=== PATIENT | female | born 1935 | race Caucasian/White ===

== ENCOUNTER 2017-06-13 17:48 | Emergency (ER) | payer MEDICARE, MEDICAID ==
[2017-06-13 19:33] LABS: BASO % 0 % (0-3); EOS # 0.2 x10^3/uL (0.0-0.7); EOS % 1 % (0-3); HEMATOCRIT 36.2 % (36.0-47.0); HEMOGLOBIN 12.2 g/dL (12.0-15.5); LYMPH # 1.1 x10^3/uL (1.0-4.8); LYMPH % 7 % (24-48); MEAN CORPUSCULAR HEMOGLOBIN 31 pg (25-35); MEAN CORPUSCULAR HGB CONC 34 g/dL (31-37); MEAN CORPUSCULAR VOLUME 92 fL (79-100); MONO # 0.7 x10^3/uL (0.0-1.1); MONO % 4 % (0-9); NEUT # 14.2 x10^3uL (1.8-7.7); NEUT % 88 % (31-73); PLATELET COUNT 284 x10^3/uL (140-400); RED BLOOD COUNT 3.92 x10^6/uL (3.50-5.40); RED CELL DISTRIBUTION WIDTH 13.6 % (11.5-14.5); WHITE BLOOD COUNT 16.2 x10^3/uL (4.0-11.0)
[2017-06-13 19:36] LABS: CALCIUM 9.4 mg/dL (8.5-10.1); CREATININE 0.8 mg/dL (0.6-1.0); GFR 68.5; POTASSIUM 3.7 mmol/L (3.5-5.1)
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
[2017-06-13 21:03] VITALS: BP 156/51
[2017-06-13 21:27] LABS: BACTERIA,URINE MOD /HPF (0-FEW); BILIRUBIN,URINE NEG (NEG); CLARITY,URINE HAZY; COLOR,URINE YELLOW; GLUCOSE,URINE NEG (NEG); NITRITE,URINE NEG (NEG); SQUAMOUS EPITHELIAL CELL,UR MOD /LPF; UROBILINOGEN,URINE 0.2 mg/dL (0.2 mg/dL)
[2017-06-13 21:28] LABS: AMORPHOUS SEDIMENT,UR PRESENT /HPF; HYALINE CASTS, URINE MOD /HPF
[2017-06-13 21:39] LABS: % BANDS 2 % (0-9); % EOS 2 % (0-5); % LYMPHS 6 % (24-48); % MONOS 3 % (0-10); % SEGS 87 % (35-66)
[2017-06-13 21:44] LABS: PLT ESTIMATE ADEQUATE (ADEQUATE)
[2017-06-13 21:47] LABS: OVALOCYTES FEW
[2017-06-13] MEDS ORDERED: CIPR250T30 PO (22:13)
[2017-06-13] MEDS ORDERED: CIPROFLOXACIN HCL 500 MG TABLET PO ONE (22:15)
== END 2017-06-13 23:00 ==
LOC: ER 17:48
DX: E11.649 Type 2 diabetes mellitus with hypoglycemia without coma (principal); N39.0 Urinary tract infection, site not specified; K21.9 Gastro-esophageal reflux disease without esophagitis; E03.9 Hypothyroidism, unspecified; I10 Essential (primary) hypertension; F03.90 Unspecified dementia, unspecified severity, without behavioral disturbance, psychotic disturbance, mood disturbance, and anxiety; F41.9 Anxiety disorder, unspecified; F32.9 Major depressive disorder, single episode, unspecified; Z79.4 Long term (current) use of insulin; Z86.2 Personal history of diseases of the blood and blood-forming organs and certain disorders involving the immune mechanism
CPT/HCPCS: 36415; 80048; 81001; 82947; 85007; 85025; 87086; 87186; 99285

== ENCOUNTER 2017-11-07 23:08 | Inpatient (IN) | payer MEDICARE, MEDICAID ==
[~2017-11-07] VITALS: Ht 157.5 cm; Wt 51.9 kg
[~2017-11-07 23:08] MED LIST: CIPR250T30 PO
--- NOTE | 2017-11-07 23:37 | ED.ADGEN ---
Past History Past Medical History: Anemia, Anxiety, Dementia, Depression, Diabetes, GERD, GI Bleed, Hypertension, Hyperthyroid, Other Past Surgical History: Other Alcohol Use: None Drug Use: None Adult General Chief Complaint Chief Complaint " I am having a baby..." HPI HPI Patient is a 82 year old female who presents with hx of nausea and vomiting. Staffing felt vomit to be coffee ground per NH at [facility]. . Pt. reportedly under went a GI procedure on 11/04 for abd.pain, location not know at this time. Pt. does have a Hx. of Anemia, DJD, CADz with Stents, GERD , Depression, Dementia, Anxiety, HTN, Hyper Lipidemia, DM II, UTI - recurrent, and deconditioning. Pt . normally follows with Dr. Pruett. Pt. a very poor historian, feels she is and going to have baby. Pt. localizes her pain in lower abd.. Pt. reports did have a black and feliz stool tonight. Pt. normally and stand and turn, but weaker tonight. Review of Systems Review of Systems Pt. poor historian - dementia Constitutional: Hx of fever Eyes: Denies change in visual acuity, redness, or eye pain [] HENT: Denies nasal congestion or sore throat [] Respiratory: Denies cough or shortness of breath [] Cardiovascular: No additional information not addressed in HPI [] GI: Hx of abdominal pain, nausea, vomiting, coffee ground? : Denies dysuria or hematuria [] Musculoskeletal: Denies back pain or joint pain [] Integument: Denies rash or skin lesions [] Neurologic: Denies headache, focal weakness or sensory changes [] Endocrine: Denies polyuria or polydipsia [] All other systems were reviewed and found to be within normal limits, except as documented in this note. Family History Family History Not currently available Current Medications Current Medications Current Medications Medications (Trade) Dose Ordered Sig/[place] Start Time Stop Time Status Last Admin Dose Admin Famotidine (Pepcid Vial) 20 mg 1X ONCE 11/08/17 00:30 11/08/17 00:35 DC 11/08/17 00:30 20 MG Lactated Ringer's 1,000 ml @ 1,000 mls/hr Q1H 11/07/17 23:45 11/08/17 00:44 DC 11/07/17 23:45 1,000 MLS/HR Ondansetron HCl (Zofran Odt) 4 mg 1X ONCE 11/08/17 01:30 11/08/17 01:31 DC 11/08/17 00:30 4 MG Ondansetron HCl (Zofran) 4 mg 1X ONCE 11/08/17 00:30 11/08/17 00:36 DC Allergies Allergies nkda Physical Exam Physical Exam Constitutional: , no acute distress, chronically ill in appearance. [] HENT: Normocephalic, atraumatic, bilateral external ears normal, oropharynx very dry, no oral exudates, nose normal. [] Eyes: PERRLA, EOMI, conjunctiva pale, no discharge. [] Neck: Normal range of motion, no tenderness, supple, no stridor. [] Cardiovascular:Bradycardia Heart rate regular rhythm, PMI to lt. Lungs & Thorax: Bilateral breath sounds rhonchi >on rt upper on auscultation [] Abdomen: Bowel sounds normal, soft, no tenderness, no masses, no pulsatile masses. Rectal Trace + Hgb Skin: Warm, dry, no erythema, no rash. [] Poor turgor. Cap. refill at 3 seconds finger and toes. Back: lumbar tenderness, no CVA tenderness. [] Extremities: Rt. hip and leg tenderness, no cyanosis, no clubbing, Limit ROM Rt leg,, no edema. Arthritic changes. Posterior gluteal contusion Neurologic: Alert x1, ,moves all ext. on request, no gross sensory loss over baseline, Psychologic: Affect flat., depressed. Episodes of hallucination and agitation. Pt. feels she is having labor pains from a and is at [facility]. Pt. yelling for Oleksandr to open window and stop the car... yelling for her daughters Denita and Trudy to go get sandwiches for the Garage sale. Current Patient Data Vital Signs Vital Signs Date Time Temp Pulse Resp B/P (MAP) Pulse Ox O2 Delivery O2 Flow Rate FiO2 11/07/17 23:08 98.1 60 20 98 Room Air Lab Results Laboratory Tests Test 11/07/17 23:14 11/07/17 23:35 11/07/17 23:40 Stool Occult Blood Positive (NEG) White Blood Count 15.8 x10^3/uL (4.0-11.0) H Red Blood Count 3.30 x10^6/uL (3.50-5.40) L Hemoglobin 10.0 g/dL (12.0-15.5) L Hematocrit 30.2 % (36.0-47.0) L Mean Corpuscular Volume 92 fL (79-100) Mean Corpuscular Hemoglobin 30 pg (25-35) Mean Corpuscular Hemoglobin Concent 33 g/dL (31-37) Red Cell Distribution Width 14.3 % (11.5-14.5) Platelet Count 447 x10^3/uL (140-400) H Neutrophils (%) (Auto) 84 % (31-73) H Lymphocytes (%) (Auto) 4 % (24-48) L Monocytes (%) (Auto) 6 % (0-9) Eosinophils (%) (Auto) 4 % (0-3) H Basophils (%) (Auto) 1 % (0-3) Neutrophils # (Auto) 13.3 x10^3uL (1.8-7.7) H Lymphocytes # (Auto) 0.7 x10^3/uL (1.0-4.8) L Monocytes # (Auto) 1.0 x10^3/uL (0.0-1.1) Eosinophils # (Auto) 0.6 x10^3/uL (0.0-0.7) Basophils # (Auto) 0.2 x10^3/uL (0.0-0.2) Segmented Neutrophils % 80 % (35-66) H Band Neutrophils % 10 % (0-9) H Lymphocytes % 3 % (24-48) L Monocytes % 4 % (0-10) Eosinophils % 3 % (0-5) Platelet Estimate Increased (ADEQUATE) Prothrombin Time 11.6 SEC (9.4-11.4) H Prothrombin Time INR 1.1 (0.9-1.1) PTT 21 SEC (23-33) L Sodium Level 135 mmol/L (136-145) L Potassium Level 5.3 mmol/L (3.5-5.1) H Chloride Level 96 mmol/L (98-107) L Carbon Dioxide Level 25 mmol/L (21-32) Anion Gap 14 (6-14) Blood Urea Nitrogen 59 mg/dL (7-20) H Creatinine 3.4 mg/dL (0.6-1.0) H Estimated GFR (Cockcroft-Gault) 12.9 Glucose Level 185 mg/dL (70-99) H Calcium Level 9.8 mg/dL (8.5-10.1) Total Bilirubin 0.3 mg/dL (0.2-1.0) Direct Bilirubin 0.1 mg/dL (0.0-0.2) Aspartate Amino Transferase (AST) 21 U/L (15-37) Alanine Aminotransferase (ALT) 17 U/L (14-59) Alkaline Phosphatase 68 U/L (46-116) Creatine Kinase 304 U/L (26-192) H Creatine Kinase MB (Mass) 1.4 ng/mL (0.0-3.6) Creatine Kinase MB Relative Index 0.5 % (0-4) Troponin I Quantitative < 0.017 ng/mL (0-0.055) Total Protein 6.8 g/dL (6.4-8.2) Albumin 2.6 g/dL (3.4-5.0) L Lipase 69 U/L (73-393) L Urine Collection Type U cath Urine Color Yellow Urine Clarity Clear Urine pH 5.0 Urine Specific [place] 1.015 Urine Protein Neg (NEG-TRACE) Urine Glucose (UA) Neg mg/dL (NEG) Urine Ketones (Stick) Neg mg/dL (NEG) Urine Blood Neg (NEG) Urine Nitrite Neg (NEG) Urine Bilirubin Neg (NEG) Urine Urobilinogen Dipstick 0.2 mg/dL (0.2 mg/dL) Urine Leukocyte Esterase Small (NEG) Urine RBC 0 /HPF (0-2) Urine WBC Occ /HPF (0-4) Urine Squamous Epithelial Cells Few /LPF Urine Bacteria 0 /HPF (0-FEW) EKG EKG My interpretation of EKG shows sinus rhythm at 60 bpm. Does have a premature V.complexes.[] Has a depressed ST segments in leads 1 to and 3. Does have a ventricular strain pattern. Radiology/Procedures Radiology/Procedures My interpretation of acute abdomen film shows some patchy infiltrate lung peralta. No free air in the diaphragm. Does have contrast in the colon GI tract[] . Has degenerative joint changes of spine. Right hip appears to be abnormally rotated. Patient has marked degenerative joint changes of femurs but no obvious fracture dislocation. Shows degenerative joint changes. Questionable rotation of right hip are old pelvic fracture. CT of abdomen pending at time of admission. Course & Med Decision Making Course & Med Decision Making Pertinent Labs and Imaging studies reviewed. (See chart for details) Discussed presentation, testing and tx. plan with Dr. Keith- admit for further eval. and tx. Repeat CBC still pending- Lab will not type cross until repeat CBC because of protocol. [] Final Impression Final Impression 1. Nausea and vomiting 2. Abdomen pain 3. History of fever 4. Leukocytosis with bands and segs 5. Urinary tract infection 6. Sepsis/Sirs 7. Malnutrition albumin 2.6[] 8. Elevated potassium and sodium 9. Elevated BUN/creatinine suspect dehydration 10. Diabetes-glycemia 185 11. Aspiration pneumonitis 12. History of coffee ground emesis and trace positive rectal= GI bleed 13. L -1 Spinal Fx. 14. Gluteal Contusions 15. Dementia 16. Elevated Lactic Acid 5.5 17. Bradycardia Dragon Disclaimer Dragon Disclaimer This electronic medical record was generated, in whole or in part, using a voice recognition dictation system. ROSE KEYES MD November 07, 2017 23:37
[2017-11-07] MEDS ORDERED: IV RINGERS SOLUTION,LACTATED 1,000 ML IV SCH (23:45)
[2017-11-08] VITALS (15 sets, daily range): BP systolic 96–111; BP diastolic 43–84
[2017-11-08 00:02] LABS: BASO # 0.2 x10^3/uL (0.0-0.2); BASO % 1 % (0-3); EOS # 0.6 x10^3/uL (0.0-0.7); EOS % 4 % (0-3); HEMATOCRIT 30.2 % (36.0-47.0); LYMPH # 0.7 x10^3/uL (1.0-4.8); LYMPH % 4 % (24-48); MEAN CORPUSCULAR HEMOGLOBIN 30 pg (25-35); MEAN CORPUSCULAR HGB CONC 33 g/dL (31-37); MEAN CORPUSCULAR VOLUME 92 fL (79-100); MONO % 6 % (0-9); NEUT # 13.3 x10^3uL (1.8-7.7); NEUT % 84 % (31-73); PLATELET COUNT 447 x10^3/uL (140-400); RED CELL DISTRIBUTION WIDTH 14.3 % (11.5-14.5); WHITE BLOOD COUNT 15.8 x10^3/uL (4.0-11.0)
[2017-11-08 00:20] LABS: ALBUMIN 2.6 g/dL (3.4-5.0); CALCIUM 9.8 mg/dL (8.5-10.1); CREATININE 3.4 mg/dL (0.6-1.0); DIRECT BILIRUBIN 0.1 mg/dL (0.0-0.2); GFR 12.9; POTASSIUM 5.3 mmol/L (3.5-5.1); TOTAL BILIRUBIN 0.3 mg/dL (0.2-1.0); TOTAL PROTEIN 6.8 g/dL (6.4-8.2)
[2017-11-08] MEDS ORDERED: ONDANSETRON ODT 4 MG TAB.RAPDIS ONE (00:20)
--- NOTE | 2017-11-08 00:20 | EKG ---
[address] [address] Test Date: 2017-11-08 Test Time: 00:09:47 Pat Name: NORAH LIU Department: Room: Gender: F Lead Inspector: : 1935 Requested By: ROSE KEYES Order Number: [id number] Reading MD: Measurements Intervals [place] Rate: 62 P: 51 AK: 232 QRS: 6 QRSD: 122 T: -130 QT: 430 QTc: 439 Interpretive Statements SINUS RHYTHM ATRIAL PREMATURE COMPLEX(ES) PROLONGED AK INTERVAL QRS(T) CONTOUR ABNORMALITY CONSISTENT WITH ANTEROSEPTAL INFARCT PROBABLY OLD ST & T ABNORMALITY, CONSIDER ANTEROLATERAL ISCHEMIA OR LEFT VENTRICULAR STRAIN INFEROLATERAL ISCHEMIA OR LEFT VENTRICULAR STRAIN ABNORMAL ECG RI6.01 No previous ECG available for comparison
[2017-11-08 00:21] LABS: % BANDS 10 % (0-9); % EOS 3 % (0-5); % LYMPHS 3 % (24-48); % MONOS 4 % (0-10); % SEGS 80 % (35-66)
[2017-11-08 00:22] LABS: PLT ESTIMATE INCREASED (ADEQUATE)
[2017-11-08] MEDS ORDERED: ONDANSETRON PF 4 MG/2 ML VIAL. IV ONE (00:30)
[2017-11-08] MEDS ORDERED: FAMOTIDINE 20 MG/2 ML VIAL IVP ONE (00:30)
[2017-11-08 00:55] LABS: BACTERIA,URINE 0 /HPF (0-FEW); BILIRUBIN,URINE NEG (NEG); CLARITY,URINE CLEAR; COLOR,URINE YELLOW; GLUCOSE,URINE NEG (NEG); NITRITE,URINE NEG (NEG); RBC,URINE 0 /HPF (0-2); SQUAMOUS EPITHELIAL CELL,UR FEW /LPF; UROBILINOGEN,URINE 0.2 mg/dL (0.2 mg/dL); WBC,URINE OCC /HPF (0-4)
[2017-11-08] MEDS ORDERED: ONDANSETRON ODT 4 MG TAB.RAPDIS PO ONE (01:30)
[2017-11-08] MEDS ORDERED: ONDANSETRON PF 4 MG/2 ML VIAL. IV PRN (02:00)
[2017-11-08] MEDS ORDERED: cefTRIAXone SODIUM 1 GM VIAL IV ONE (02:10)
[2017-11-08] MEDS ORDERED: IV NORMAL SALINE 1,000ML 1,000 ML IV ONE (02:45)
[2017-11-08] MEDS ORDERED: CONTRAST GIVEN MC PRN (03:00)
[2017-11-08] MEDS ORDERED: IOHEXOL 240 MG/ML 50ML VIAL. PO ONE (03:00)
[2017-11-08] MEDS ORDERED: cefTRIAXone IV Push 1 GM VIAL. IVP ONE (03:00)
--- NOTE | 2017-11-08 04:17 | RAD ---
INDICATION: ABDOMINAL PAIN, BLOODY STOOLS, VOMITING COMPARISON: None. TECHNIQUE: Axial CT images obtained through the abdomen and pelvis without contrast. Limited assessment of solid organ structures and vasculature secondary to lack of intravenous contrast. One or more of the following individualized dose reduction techniques were utilized for this examination: 1. Automated exposure control; 2. Adjustment of the mA and/or kV according to patient size; 3. Use of iterative reconstruction technique. FINDINGS: Focal opacities in the right lower lung. Coronary artery calcific atherosclerosis. Distention of distal esophagus versus small hiatal hernia. Small left-sided pleural effusion. Severe calcific atherosclerosis. Subcutaneous induration the fat at the inferior aspect of the gluteal region partially seen. No intrahepatic bile duct dilation. Gallbladder is partially distended at time of exam. Questionable mild indistinctness of the adjacent fat although this could be artifact. No definite peripancreatic fluid collection. Spleen unremarkable. No left-sided hydronephrosis. Vascular calcification versus nonobstructive left renal stone. Urinary bladder is partially distended. There is some contrast seen within the colon. Somewhat lobulated appearance of the kidneys. No intravenous contrast therefore highly limited exam for renal lesion. No right-sided hydronephrosis. There are some calcifications within the uterus. Colonic diverticula suspected. Appendix does not appear grossly inflamed. No dilated loops of bowel to suggest obstruction. Degenerative changes throughout the spine with multilevel central canal and neural foraminal stenosis. There are some regions of osseous demineralization. Scoliotic curvature of the spine. Acute appearing L1 fracture with fracture line seen at the superior aspect of the vertebral body with associated compression. IMPRESSION: 1. No definite evidence of bowel obstruction or appendicitis. 2. Fracture line is seen through the L1 vertebral body extending through the superior endplate with mild loss of height. Given the fracture line this is suspicious for an acute fracture. There may also be a small amount of adjacent stranding and blood in the soft tissues. 3. Patchy opacity at right lower lung. Could be secondary to regions of infiltrate with some other possible causes including aspiration or alveolar hemorrhage. Follow-up should be obtained to ensure this resolves to exclude neoplastic causes. 4. There is either distention of the distal esophagus or a distended small hiatal hernia. 5. Questionable mild indistinctness the fat adjacent to the gallbladder although this is most likely artifactual in nature 6. Suspected uterine fibroids. 7. Subcutaneous induration the fat at partially visualized lower gluteal region. Would correlate with symptoms in the region to ensure that there is not a pathologic cause such as infectious etiology or some subcutaneous blood in the region. 8. Severe degenerative changes the spine with multilevel central canal and neural foraminal stenosis. Electronically signed by: Moe Holbrook MD (11/08/2017 4:14 AM) [id number]
[2017-11-08 04:58] LABS: HEMOGLOBIN ISTAT 24.1 gm/dL; POTASSIUM ISTAT 5.3 mmol/L (3.5-5.0)
[2017-11-08 05:21] LABS: FECAL OB PT POSITIVE (NEG)
[2017-11-08 06:06] LABS: BASO # 0.1 x10^3/uL (0.0-0.2); BASO % 1 % (0-3); EOS # 0.5 x10^3/uL (0.0-0.7); EOS % 3 % (0-3); HEMATOCRIT 26.6 % (36.0-47.0); HEMOGLOBIN 8.8 g/dL (12.0-15.5); LYMPH # 0.7 x10^3/uL (1.0-4.8); LYMPH % 5 % (24-48); MEAN CORPUSCULAR HEMOGLOBIN 31 pg (25-35); MEAN CORPUSCULAR HGB CONC 33 g/dL (31-37); MEAN CORPUSCULAR VOLUME 93 fL (79-100); MONO # 0.9 x10^3/uL (0.0-1.1); MONO % 6 % (0-9); NEUT # 12.2 x10^3uL (1.8-7.7); NEUT % 85 % (31-73); PLATELET COUNT 385 x10^3/uL (140-400); RED BLOOD COUNT 2.87 x10^6/uL (3.50-5.40); RED CELL DISTRIBUTION WIDTH 13.8 % (11.5-14.5); WHITE BLOOD COUNT 14.4 x10^3/uL (4.0-11.0)
[2017-11-08] MEDS: IPRATRPIUM/ALBUTEROL 0.5/2.5MG 3 ML NEBU. NEB SCH ×4 (06:15→20:00)
[2017-11-08] MEDS: IV NORMAL SALINE 1,000ML 1,000 ML IV SCH ×2 (07:31→15:00)
--- NOTE | 2017-11-08 08:10 | RAD ---
INDICATION: Fall, left hip pain. TECHNIQUE: 2 views of the left femur are submitted for review. No comparison is available. FINDINGS: There is no fracture or osseous lesion. There are vascular calcifications. IMPRESSION: Negative for fracture. Electronically signed by: Stefan Arce MD (11/08/2017 8:06 AM) [id number]
--- NOTE | 2017-11-08 08:17 | RAD ---
INDICATION: Bilateral hip pain. TECHNIQUE: AP pelvis is submitted for review. Comparison is made to an abdominal series from November 09, 2011. FINDINGS: There is mild acetabular spurring in both hips. There is mild joint space narrowing superiorly in the right hip. There are advanced degenerative changes in the included spine. There is contrast from recent CT within the colon. IMPRESSION: Mild osteoarthritis in both hips. Electronically signed by: Stefan Arce MD (11/08/2017 8:14 AM) [id number]
[2017-11-08 08:20] LABS: ALBUMIN 2.3 g/dL (3.4-5.0); ALBUMIN/GLOBULIN RATIO 0.7 (1.0-1.7); CALCIUM 8.9 mg/dL (8.5-10.1); CREATININE 3.5 mg/dL (0.6-1.0); GFR 12.5; POTASSIUM 5.5 mmol/L (3.5-5.1); TOTAL BILIRUBIN 0.2 mg/dL (0.2-1.0); TOTAL PROTEIN 5.4 g/dL (6.4-8.2)
--- NOTE | 2017-11-08 08:28 | RAD ---
INDICATION: Blood in stool, weakness and vomiting. TECHNIQUE: Upright portable chest radiograph was obtained. Comparison is from November 09, 2011. FINDINGS: The lungs are clear. There is now mild elevation of the right hemidiaphragm. The heart is not enlarged. There is atheromatous disease in the thoracic aorta. There are degenerative changes in the shoulders. Leads overlie the patient. There is no dilated small bowel loop or air-fluid level. There is contrast in the colon from prior CT scan. Colon is not dilated. There is no free air. There are degenerative changes in the spine. IMPRESSION: Nonobstructive bowel gas pattern. Electronically signed by: Stefan Arce MD (11/08/2017 8:25 AM) [id number]
[2017-11-08] MEDS ORDERED: BUSP5TAB PO (08:30)
[2017-11-08] MEDS ORDERED: TRAM50TA PO (08:30)
[2017-11-08] MEDS ORDERED: ONDA4TAB7 PO (08:30)
[2017-11-08] MEDS ORDERED: CARV6.252 PO (08:30)
[2017-11-08] MEDS ORDERED: GLUC1KIT IM (08:30)
[2017-11-08] MEDS ORDERED: ASPI81TA50 PO (08:30)
[2017-11-08] MEDS ORDERED: DEXT38GE2 PO (08:30)
[2017-11-08] MEDS ORDERED: DULO30CA2 PO (08:30)
[2017-11-08] MEDS ORDERED: CETI10TA16 PO (08:30)
[2017-11-08] MEDS ORDERED: LISI10TA2 PO (08:30)
[2017-11-08] MEDS ORDERED: VIT1CAPS10 PO (08:30)
[2017-11-08] MEDS ORDERED: MUPI22OI2 TP (08:30)
[2017-11-08] MEDS ORDERED: MIRT30TA PO (08:30)
[2017-11-08] MEDS ORDERED: AMLO10TA2 PO (08:30)
[2017-11-08] MEDS ORDERED: DONE10TA7 PO (08:30)
[2017-11-08] MEDS ORDERED: METF10003 PO (08:30)
[2017-11-08] MEDS ORDERED: ACET500T68 PO (08:30)
[2017-11-08] MEDS ORDERED: MAGN2400 PO (08:30)
[2017-11-08] MEDS ORDERED: SIMV20TA PO (08:30)
[2017-11-08] MEDS ORDERED: HYDR-2758 PO (08:30)
[2017-11-08] MEDS ORDERED: GLIP10TA13 PO (08:30)
[2017-11-08] MEDS ORDERED: PANT40TA3 PO (08:30)
[2017-11-08] MEDS ORDERED: FAMOTIDINE 20 MG/2 ML VIAL IVP SCH (09:00)
[2017-11-08 10:54] LABS: HEMATOCRIT 24.3 % (36.0-47.0); HEMOGLOBIN 7.9 g/dL (12.0-15.5)
[2017-11-08] MEDS ORDERED: VANCOMYCIN PER PHARMACY MC PRN (11:15)
[2017-11-08] MEDS ORDERED: PIP/TAZO PER PHARMACY MC PRN (11:15)
[2017-11-08] MEDS ORDERED: VANCOMYCIN 1.25 GM in IV NORMAL SALINE 250ML 250 ML IV ONE (13:00)
--- NOTE | 2017-11-08 14:40 | RAD ---
AP and lateral right femur radiographs 11/08/2017 CLINICAL HISTORY: Right hip pain. Two AP and two lateral digital radiographs of the right femur were obtained. There is diffuse osteopenia of the visualized bony structures. No fracture or dislocation of the right femur is seen. Mild degenerative changes are seen involving the right hip. Moderate to severe degenerative changes are seen involving the right knee. Atherosclerotic calcification of the right superficial femoral artery and its branches is noted. Contrast is seen within the visualized portions of the sigmoid colon and rectum. IMPRESSION: No fracture or dislocation of the right femur is seen. Electronically signed by: Gopal Jauregui MD (11/08/2017 2:37 PM) [id number]
[2017-11-08 15:53] LABS: HEMATOCRIT 24.4 % (36.0-47.0); RED BLOOD COUNT 2.65 x10^6/uL (3.50-5.40); RED CELL DISTRIBUTION WIDTH 14.2 % (11.5-14.5); WHITE BLOOD COUNT 15.4 x10^3/uL (4.0-11.0)
[2017-11-08 16:08] LABS: ALBUMIN 2.2 g/dL (3.4-5.0); ALBUMIN/GLOBULIN RATIO 0.6 (1.0-1.7); CREATININE 3.6 mg/dL (0.6-1.0); GFR 12.1; POTASSIUM 5.6 mmol/L (3.5-5.1); TOTAL BILIRUBIN 0.3 mg/dL (0.2-1.0); TOTAL PROTEIN 5.8 g/dL (6.4-8.2)
[2017-11-08] MEDS: PIPERACILLIN/TAZOBACTAM 2.25 GM in IV NORMAL SALINE 50ML 50 ML IV SCH ×3 (16:48→23:14)
--- NOTE | 2017-11-08 16:58 | HP ---
ADMIT DATE: 11/08/2017 HISTORY OF PRESENT ILLNESS: The patient is an 82-year-old female patient, resident at [facility], who apparently was brought to the Emergency Room with a complaint of recurrent bouts of nausea and vomiting. She has been vomiting what looked like a coffee ground material per detention nursing staff. The patient reportedly also underwent GI procedure on 11/04/2017 for abdominal pain. Specifics are not available. The patient herself is very demented, does not give any useful information. The patient was localizing her pain to the lower abdomen and did have a blackened stool last night. The patient normally stands and turns, but apparently weaker when she came here. She was evaluated in the Emergency Room and her lab work showed her leukocytosis. Her chemistry showed she has hyperkalemia and acute versus acute on chronic kidney injury and lactic acidosis. Her urinalysis was unremarkable; however, her stool for occult blood was positive. The patient was admitted for possible acute gastroenteritis versus GI bleed as well as lactic acidosis. She also has what seemed to be acute on chronic versus acute kidney injury. She was given at least 2 liters of fluid, has an indwelling Gipson catheter. Her stool for occult blood was positive. We will follow her H and H, probably every 6 hours and transfuse her as needed. Her abdomen and pelvic CT scan showed that there is no evidence of bowel obstruction or appendicitis, fracture line is seen through L1 vertebral body extending to the superior endplate with mild loss of height given the fracture line. There is suspicion for an acute fracture. There may also be a small amount of adjacent stranding and blood in the soft tissues. She has patchy opacity in the right lower lung, could be secondary to regions of infiltrate with some other possible causes including aspiration or alveolar hemorrhage. She has also either distention of the distal esophagus or a distended small hiatal hernia, questionable mild indistinctness in the fat adjacent to the gallbladder, although this is most likely artifactual in nature, suspected uterine fibroid, subcutaneous induration of the fat, partially visualized lower gluteal region and she has severe degenerative changes in the spine with multilevel central canal and neural foraminal stenosis. The patient will continue the IV fluid, IV antibiotic. We will monitor her H and H and transfuse her as needed. PAST MEDICAL HISTORY: Significant for hyperlipidemia, hypertension, dementia without behavioral disturbances, gastroesophageal reflux disease without esophagitis. She has major depressive disorder, recurrent. She has type 2 diabetes, atherosclerosis, and anemia. She has recurrent infection and anxiety disorder. PAST SURGICAL HISTORY: Unobtainable. She did have upper GI endoscopy apparently recently. ALLERGIES: She has no known drug allergies. MEDICATIONS: She is currently on the following medication at the [facility]. She is on cetirizine 10 mg once a day, Aricept 10 mg at bedtime, simvastatin 20 mg tablet at bedtime, carvedilol 6.25 mg twice a day with meals, amlodipine besylate 10 mg daily, lisinopril 10 mg tablet daily, aspirin 81 mg once a day, hydrocodone/APAP 5/325 one tablet every 6 hours, tramadol 50 mg every 6 hours, acetaminophen 500 mg every 4 hours, duloxetine 30 mg p.o. daily, mirtazapine 30 mg at bedtime, buspirone 5 mg twice a day. She is on dextrose as needed for hypoglycemia, milk of magnesia 30 mL p.o. daily p.r.n. for constipation, ondansetron 4 mg every 6 hours, Protonix 40 mg daily, metformin 1000 mg b.i.d., glipizide 10 mg daily, Glucagon 1 mg intramuscular as needed for hypoglycemia, Bactroban ointment topically twice a day, and multivitamin 1 tablet once a day. FAMILY HISTORY: Unobtainable. SOCIAL HISTORY: She is a resident at [facility]. She apparently does not smoke, drink alcohol, or use any recreational drugs. PHYSICAL EXAMINATION: GENERAL: On arrival to the Emergency Room, she was pale, cachectic, but no jaundice, cyanosis, or thyromegaly. No jugular venous distension. No limb edema. VITAL SIGNS: Her heart rate was 60, blood pressure was 100/84, temperature was 98.1, respiratory rate was 18, and oxygen saturation was 94% on room air. HEAD, EYES, EARS, NOSE, AND THROAT: Showed normocephalic, atraumatic. NECK: Supple. HEART: Showed normal first and second heart sounds with no gallop, rub, or murmur. CHEST: Clear to auscultation. No crepitation or rhonchi. ABDOMEN: Distended, soft, nontender. NEUROLOGIC: She is awake, alert, but confused, demented, but without any lateralizing sign. All cranial nerves intact. EXTREMITIES: She moves her extremities without difficulty, although she is mostly bedbound, chair bound. LABORATORY DATA: Her lab work on arrival to the Emergency Room showed a white cell count of 15,800, hemoglobin 10, hematocrit 30, MCV 92, and platelet count of 147,000. Her prothrombin time was 11.6, INR 1.1, aPTT was 21. Her chemistry showed a serum sodium 135, potassium 5.3, chloride 96, bicarbonate 25, anion gap of 4, BUN 59, creatinine 3.4, estimated GFR was 12.9 mL per minute. Her glucose was , calcium was 9.8. Total bilirubin, AST, ALT, alkaline phosphatase were normal. Her total protein was 6.8, albumin was 2.6. Her lactic acid was 5.9. Her urinalysis was essentially unremarkable. The urine was yellow, clear with a pH of 5, specific gravity 1.015. The urine was negative for protein, glucose, ketones, blood, nitrite, and leukocyte esterase. There are no rbc's, occasional wbc's, and no bacteria. Her stool for occult blood was positive. She has acute abdomen series showed nonobstructive bowel gas pattern. The lungs are clear. There is now mild elevation of the right hemidiaphragm. The heart is not enlarged. There is atheromatous disease of the thoracic aorta. There are degenerative changes in this shoulder and the leads overlie the patient. There is no dilated small bowel loops or air fluid level. There is contrast in the colon from prior CT scan, the colon is not dilated. There is no free air. There are degenerative changes of the spine. Her abdomen and pelvic CT scan without contrast showed that there is no definite evidence of bowel obstruction or appendicitis. This fracture line is seen to the L1 vertebral body extending to the superior endplate with mild loss of height, given the fracture line there is suspicion for an acute fracture. There may also be a small amount of adjacent stranding and blood in the soft tissue. The patient has patchy opacity of the right lower lung, could be secondary to regions of acute infiltrate with some other possible causes including aspiration or alveolar hemorrhage. There is either distention of the distal esophagus or distended small hiatal hernia with questionable mildly of the fat adjacent to the gallbladder, although this is most likely artifactual in nature. She has suspected uterine fibroids, subcutaneous induration of the fat at partially visualized lower gluteal region. She has severe degenerative changes of the spine with multilevel central canal and neural foraminal stenosis. She had x-ray of her pelvis which showed mild osteoarthritis of the both hip joint. Her x-ray of the right hip showed no evidence of fracture or dislocation of the right femur seen and left hip and left femur showed no evidence of fracture. ASSESSMENT AND PLAN: So basically, the patient was admitted with recurrent bouts of nausea, vomiting, as well as diarrhea and abdominal pain. She has leukocytosis and sepsis and severe protein calorie malnutrition. Her serum albumin is only 2.6, hyperkalemia and hypernatremia. She has [id number] versus acute kidney injury, type 2 diabetes mellitus with aspiration pneumonitis, L1 spinal fracture, gluteal contusion, dementia, lactic acidosis, and bradycardia, probably secondary to beta blockers. The plan is to continue the IV fluid, continue IV antibiotic. We will monitor her H and H and transfuse her as needed. ARMANI HASTINGS MD DR: MARYBEL/donal JOB#: [id number] / [id number]
[2017-11-08 21:28] LABS: HEMOGLOBIN 7.5 g/dL (12.0-15.5)
[2017-11-08] MEDS ORDERED: DEXTROSE 50% 25 GM / 50ML DISP.SYRIN. IV ONE (22:29)
[2017-11-08] MEDS: IV DEXTROSE 5 %-0.45 % NACL 1,000 ML IV SCH (23:14)
[2017-11-09] VITALS (25 sets, daily range): BP systolic 93–135; BP diastolic 45–80
[2017-11-09] MEDS: PIPERACILLIN/TAZOBACTAM 2.25 GM in IV NORMAL SALINE 50ML 50 ML IV SCH ×3 (05:32→17:46)
[2017-11-09] MEDS ORDERED: cefTRIAXone IV Push 1 GM VIAL. IVP SCH (06:00)
[2017-11-09 06:16] LABS: HEMATOCRIT 21.1 % (36.0-47.0); HEMOGLOBIN 7.1 g/dL (12.0-15.5); RED BLOOD COUNT 2.32 x10^6/uL (3.50-5.40); RED CELL DISTRIBUTION WIDTH 14.2 % (11.5-14.5); WHITE BLOOD COUNT 12.8 x10^3/uL (4.0-11.0)
[2017-11-09 06:24] LABS: ALBUMIN 2.1 g/dL (3.4-5.0); ALBUMIN/GLOBULIN RATIO 0.7 (1.0-1.7); CALCIUM 8.5 mg/dL (8.5-10.1); CREATININE 3.3 mg/dL (0.6-1.0); GFR 13.4; POTASSIUM 4.9 mmol/L (3.5-5.1); TOTAL BILIRUBIN 0.2 mg/dL (0.2-1.0); TOTAL PROTEIN 5.3 g/dL (6.4-8.2)
[2017-11-09] MEDS: PANTOPRAZOLE IV 40 MG VIAL. IVP SCH (08:08)
[2017-11-09] MEDS: IV DEXTROSE 5 %-0.45 % NACL 1,000 ML IV SCH (17:25)
[2017-11-10] VITALS (22 sets, daily range): BP systolic 100–140; BP diastolic 44–69
[2017-11-10] MEDS: PIPERACILLIN/TAZOBACTAM 2.25 GM in IV NORMAL SALINE 50ML 50 ML IV SCH ×4 (00:36→17:53)
[2017-11-10] MEDS: IV DEXTROSE 5 %-0.45 % NACL 1,000 ML IV SCH (01:55)
[2017-11-10 07:07] LABS: HEMOGLOBIN 8.2 g/dL (12.0-15.5); RED BLOOD COUNT 2.69 x10^6/uL (3.50-5.40); RED CELL DISTRIBUTION WIDTH 14.5 % (11.5-14.5)
[2017-11-10 07:13] LABS: CALCIUM 8.5 mg/dL (8.5-10.1); GFR 23.8; MAGNESIUM 1.5 mg/dL (1.8-2.4); POTASSIUM 3.4 mmol/L (3.5-5.1)
[2017-11-10] MEDS: PANTOPRAZOLE IV 40 MG VIAL. IVP SCH (07:37)
[2017-11-10] MEDS ORDERED: POTASSIUM CL 40MEQ D5-0.45NACL 1,000 ML IV ONE (08:30)
[2017-11-10] MEDS ORDERED: MAGNESIUM SULFATE 2GM 50 ML IV ONE (08:30)
--- NOTE | 2017-11-10 12:30 | PN ---
DATE: 11/09/2017 SUBJECTIVE: The patient is resting, slightly propped up in bed, in no apparent respiratory distress. She was extremely pale, but no jaundice or cyanosis. No lymphadenopathy, no thyromegaly. No jugular venous distention. No limb edema. She does not give any useful information. Apparently, she has slept the whole day today, has not eaten much, but she seemed to be generally hemodynamically stable. PHYSICAL EXAMINATION: VITAL SIGNS: Her heart rate was 62, blood pressure was 123/51, temperature was 98.6, respiratory rate was 22 and oxygen saturation was 95% on 3 liters of oxygen. HEAD, EYES, EARS, NOSE AND THROAT: Showed normocephalic, atraumatic. NECK: Supple. HEART: Showed normal first and second heart sounds with no gallop, rub or murmur. CHEST: Clear to auscultation. No crepitation or rhonchi. ABDOMEN: Slightly distended, soft, nontender. NEUROLOGIC: She is demented, but without any obvious lateralizing sign. All cranial nerves intact. She moves extremities without difficulty. Her intake over the last 24 hours was . LABORATORY DATA: This morning showed serum sodium of 138, potassium 4.9, chloride 103, bicarbonate 22, anion gap of 13. Her BUN was 65, creatinine 3.3, estimated GFR was 13 mL per minute. Her glucose was 174, calcium was 8.5. Total bilirubin, AST, ALT, alkaline phosphatase were normal. Total protein was 5.3, albumin 2.1. Her white cell count is down to 12,800, hemoglobin 7.1, hematocrit 21, MCV 91, and platelet count 326,000. ASSESSMENT: 1. Recurrent bouts of nausea, vomiting as well as diarrhea and abdominal pain, likely acute gastroenteritis. 2. She has leukocytosis and sepsis with lactic acid was high . 3. On chronic versus acute kidney injury. Her creatinine is down to 3.3 from high of 3.6. 4. Severe protein-calorie malnutrition with serum albumin is 2.1. 5. Acute blood loss anemia with hemoglobin that dropped down from 10-7.1 and hematocrit that dropped down from 30-21. Some of it probably based on hemodilution as she received large amount of fluid. 6. Pneumonia for which she continues to be on Zosyn and vancomycin as per pharmacy recommendation. 7. Lactic acidosis, most likely type B. She was on metformin. 8. Recurrent episode of hypoglycemia for which we started her on IV D5 half normal. PLAN: To transfuse her 1 unit of blood. Continued IV fluid, continued IV antibiotic. We will repeat all her labs tomorrow. Await the results of the culture and sensitivity. ARMANI HASTINGS MD DR: MARYBEL/donal JOB#: [id number] / [id number]
[2017-11-10] MEDS ORDERED: VANCOMYCIN RANDOM LEVEL. MC ONE (14:00)
[2017-11-11] VITALS (7 sets, daily range): BP systolic 120–142; BP diastolic 58–68
[2017-11-11] MEDS: PIPERACILLIN/TAZOBACTAM 2.25 GM in IV NORMAL SALINE 50ML 50 ML IV SCH ×3 (00:01→11:13)
[2017-11-11] MEDS: IV DEXTROSE 5 %-0.45 % NACL 1,000 ML IV SCH ×2 (03:03→04:35)
--- NOTE | 2017-11-11 05:42 | PN ---
DATE: SUBJECTIVE: The patient is resting, slightly propped up in bed, comfortably in no apparent distress. She is awake and alert. On questioning her, she said that she is weak, tired and preferred to lie in bed. OBJECTIVE: GENERAL: When I examined her, she was extremely pale, cachectic, but not jaundiced. I noted some thyromegaly. No jugular venous distension. No lower limb edema. VITAL SIGNS: Her heart rate was 79, blood pressure 135/58, temperature was 98.6, respiratory rate was 18 and oxygen saturation was 97% on 3 liters of oxygen. HEAD, EYES, EARS, NOSE AND THROAT: Showed normocephalic, atraumatic. NECK: Supple. HEART: Showed normal first and second sounds. No gallop, rub or murmur. CHEST: Clear to auscultation. No crepitation or rhonchi. ABDOMEN: Distended, soft and nontender. No guarding or rigidity. No organomegaly. Hernial orifice intact. Bowel sounds normal. NEUROLOGIC: She is awake, alert, but demented; however, there is no obvious lateralizing sign. All cranial nerves intact. She moves extremities without difficulty, at least when she arrived here, she was able to stand and pivot. INTAKE AND OUTPUT: Her intake over the last 24 hours was 950, output was 450. LABORATORY DATA: Showed a serum sodium of 140, potassium 3.4, chloride 106, bicarbonate 26, anion gap of 8, BUN 39 and creatinine was 2. Estimated GFR was 24 mL per minute. Her glucose was 217, calcium was 8.5 and magnesium was 1.5. Her serum total protein was 5.3, albumin 2.1. Her white cell count was 10,000; hemoglobin 8.2, hematocrit 24, MCV 89 and platelet count of 290,000. ASSESSMENT: 1. Recurrent bouts of nausea, vomiting, diarrhea and abdominal pain that is likely due to acute gastroenteritis resolved. She has leukocytosis and sepsis with lactic acid that was high at 8, that resolved. 2. Severe protein calorie malnutrition. Serum albumin is only 2.1 g/dL 3. Acute on chronic kidney injury. Her creatinine is down to 2 from 3.6. 4. Acute blood loss anemia with a hemoglobin that dropped down from 10 to 7.1. She did receive 1 unit of packed RBCs and her hemoglobin today is 8.2. 5. Pneumonia, for which she continues to be on Zosyn and vancomycin. 6. Lactic acidosis, most likely type B due to metformin. 7. Recurrent episode of hypoglycemia for which we started her on IV D5 half normal. PLAN: My plan is to discontinue the vancomycin and continue with Zosyn for today and she remained stable, she can be discharged back to [facility]f finish the course of treatment in the form of Augmentin. ARMANI HASTINGS MD DR: MARYBEL/donal JOB#: [id number] / [id number]
[2017-11-11 06:57] LABS: BASO % 0 % (0-3); EOS # 0.6 x10^3/uL (0.0-0.7); EOS % 6 % (0-3); HEMATOCRIT 27.9 % (36.0-47.0); HEMOGLOBIN 9.6 g/dL (12.0-15.5); LYMPH # 0.9 x10^3/uL (1.0-4.8); LYMPH % 8 % (24-48); MEAN CORPUSCULAR HEMOGLOBIN 31 pg (25-35); MEAN CORPUSCULAR HGB CONC 34 g/dL (31-37); MEAN CORPUSCULAR VOLUME 90 fL (79-100); MONO # 0.9 x10^3/uL (0.0-1.1); MONO % 8 % (0-9); NEUT # 8.2 x10^3uL (1.8-7.7); NEUT % 77 % (31-73); PLATELET COUNT 341 x10^3/uL (140-400); RED BLOOD COUNT 3.09 x10^6/uL (3.50-5.40); RED CELL DISTRIBUTION WIDTH 14.4 % (11.5-14.5); WHITE BLOOD COUNT 10.6 x10^3/uL (4.0-11.0)
[2017-11-11 07:09] LABS: ALBUMIN 2.1 g/dL (3.4-5.0); ALBUMIN/GLOBULIN RATIO 0.6 (1.0-1.7); CALCIUM 8.5 mg/dL (8.5-10.1); CREATININE 1.2 mg/dL (0.6-1.0); GFR 42.9; POTASSIUM 3.1 mmol/L (3.5-5.1); TOTAL BILIRUBIN 0.3 mg/dL (0.2-1.0); TOTAL PROTEIN 5.9 g/dL (6.4-8.2)
[2017-11-11] MEDS ORDERED: MAGNESIUM SULFATE 2GM 50 ML IV ONE (08:30)
[2017-11-11] MEDS ORDERED: POTASSIUM CHLORIDE 20 MEQ/15 ML ORAL LIQUID. PO ONE (08:30)
[2017-11-11] MEDS ORDERED: MAGNESIUM CHLORIDE ER 64 MG TABLET.ER PO SCH (09:00)
[2017-11-11] MEDS ORDERED: PANTOPRAZOLE 40 MG TABLET. PO SCH (09:30)
[2017-11-11] MEDS ORDERED: LACTOBACILLUS RHAMNOSUS GG 1 CAPSULE. PO SCH (12:00)
[2017-11-11] MEDS ORDERED: SCOPOLAMINE 1.5MG PATCH. TD ONE (14:00)
--- NOTE | 2017-11-11 21:45 | DS ---
DATE OF DISCHARGE: 11/11/2017 HOSPITAL COURSE: The patient is an 82-year-old female patient, resident at [facility], who was admitted with recurrent bouts of nausea, vomiting as well as diarrhea and abdominal pain. She was found to be septic, lactic acidosis, acute on chronic kidney injury as well as hyperkalemia, hypernatremia. She has also aspiration pneumonia and she was treated with IV fluid, IV antibiotic. We monitored her H and H and her hemoglobin has dropped down to around 7 for which we transfuse her 1 unit of blood. Her lab work has generally improved such that her creatinine came down from 3.4 to 1.2 and her BUN came down from 59-17. Her H and H has stabilized around 9.6 and 27.9; however, the patient is extremely demented and her family opted to discharge her back to [place] to go on hospice for end of life care. PHYSICAL EXAMINATION: GENERAL: When I saw her today, she looked well and was clearly in no apparent respiratory distress. She was pale, cachectic, but no jaundice, cyanosis, or thyromegaly. No jugular venous distension. No limb edema. VITAL SIGNS: Her heart rate was 65, blood pressure 142/58. Her temperature was 98, respiratory rate was 17 and oxygen saturation was 97% on 3 liters of oxygen. HEAD, EYES, EARS, NOSE AND THROAT: Normocephalic, atraumatic. NECK: Supple. HEART: Normal first and second heart sounds with no gallop, rub or murmur. CHEST: Clear to auscultation. No crepitation or rhonchi. ABDOMEN: Distended, soft, nontender. NEUROLOGIC: She is awake, alert, but very confused. All cranial nerves intact. Moves extremities without difficulty. She managed to stand up and pivot to a wheelchair. Her intake over the last 24 hours was 720, output was 950. LABORATORY DATA: Her lab work as of this morning showed a white cell count is 10,600, hemoglobin 9.6, hematocrit 27.9, MCV 90 and platelet count of 341,000. Her chemistry showed a serum sodium 141, potassium 3.1, chloride 105, bicarbonate 6, anion gap of 10, BUN 17, creatinine 1.2, estimated GFR was 43 mL per minute. Her glucose was 52, calcium was 8.5. Total bilirubin, AST, ALT, alkaline phosphatase were normal. Total protein was 5.9, albumin 2.1. DISCHARGE MEDICATIONS: 1. She was discharged back to [facility] to continue on Roxanol 20 mg per mL solution to give every 2 hours for pain or shortness of breath. Ativan for Intensol 2 mg per mL to give 0.25-1 mL less than 0.5-2 mg every 2 hours for anxiety and agitation. FINAL DISCHARGE DIAGNOSES: 1. Acute gastroenteritis, resolved. 2. Acute on chronic kidney injury, improved. Her creatinine is down from 3.6-1.2. 3. Acute blood loss anemia with hemoglobin that dropped down to 7.1. She received 1 unit of packed RBCs and today's hemoglobin is 9, hematocrit 27. 4. Aspiration pneumonia for which she was treated with Zosyn and vancomycin. 5. Lactic acidosis, most likely type B due to metformin. 6. Severe protein-calorie malnutrition with serum albumin is only 2.1 g/dL. The patient will be discharged back to [facility] to go on hospice for end of life care. ARMANI HASTINGS MD DR: MARYBEL/donal JOB#: [id number] / [id number]
== END 2017-11-11 15:47 | disposition hospice, home (50) | DRG 871 ==
LOC: ER 23:08 → ICU 11-08 01:30
PROVIDERS: ADMIT Internal Medicine; ATTEND Internal Medicine
PROC: 30233N1 Transfusion of Nonautologous Red Blood Cells into Peripheral Vein, Percutaneous Approach (ICD-10-PCS; principal; 2017-11-09)
DX: A41.9 Sepsis, unspecified organism (principal); J69.0 Pneumonitis due to inhalation of food and vomit; E43 Unspecified severe protein-calorie malnutrition; N17.9 Acute kidney failure, unspecified; D62 Acute posthemorrhagic anemia; E11.22 Type 2 diabetes mellitus with diabetic chronic kidney disease; E11.649 Type 2 diabetes mellitus with hypoglycemia without coma; E87.0 Hyperosmolality and hypernatremia; N39.0 Urinary tract infection, site not specified; S32.019A Unspecified fracture of first lumbar vertebra, initial encounter for closed fracture; Z68.20 Body mass index [BMI] 20.0-20.9, adult; E78.5 Hyperlipidemia, unspecified; E87.5 Hyperkalemia; F03.90 Unspecified dementia, unspecified severity, without behavioral disturbance, psychotic disturbance, mood disturbance, and anxiety; I12.9 Hypertensive chronic kidney disease with stage 1 through stage 4 chronic kidney disease, or unspecified chronic kidney disease; K21.9 Gastro-esophageal reflux disease without esophagitis; K52.9 Noninfective gastroenteritis and colitis, unspecified; N18.9 Chronic kidney disease, unspecified; S30.0XXA Contusion of lower back and pelvis, initial encounter; W18.39XA Other fall on same level, initial encounter; Z51.5 Encounter for palliative care; F32.9 Major depressive disorder, single episode, unspecified; F41.9 Anxiety disorder, unspecified; M19.90 Unspecified osteoarthritis, unspecified site; Z87.440 Personal history of urinary (tract) infections; Y93.89 Activity, other specified; Y92.89 Other specified places as the place of occurrence of the external cause; Y99.8 Other external cause status
CPT/HCPCS: 36415; 72170; 73552; 74022; 74176; 80047; 80048; 80053; 80076; 81001; 82150; 82274; 82553; 82947; 83605; 83690; 83735; 83880; 84484; 85007; 85014; 85018; 85025; 85027; 85610; 85730; 86850; 86900; 86901; 86920; 87040; 87086; 87641; 93005; 96361; 96365; 96366; 96375; C9113; J0696; J2543; J3370; J3475; J3490; J7042; J7050; J7120; P9016; Q0162; Q9966; S0028; 99285-25; J7030